=== PATIENT | male | born 1980 | race African-American/Black ===

== ENCOUNTER 2022-04-23 16:41 | Outpatient (REF) | payer OTHER, SELFPAY ==
[2022-04-24 09:22] LABS: CT PCR NOT DETECTED (Not Detect.); NG PCR DETECTED (Not Detect.)
== END 2022-04-23 16:42 | disposition home or self-care (01) ==
LOC: HO.LNP 16:41
PROVIDERS: Visit Provider Internal Medicine
DX: Z11.3 Encounter for screening for infections with a predominantly sexual mode of transmission (principal); N34.2 Other urethritis
CPT/HCPCS: 0353U